=== PATIENT | male | born 1980 | race Caucasian/White ===

== ENCOUNTER → 2024-01-02 08:59 | Outpatient (REF) | payer BC, SELFPAY | LOC: HWRAD 08:59 | PROVIDERS: ATTENDING PHYSICIAN Physician Assistant Medical | DX: K55.9 Vascular disorder of intestine, unspecified (principal); R10.9 Unspecified abdominal pain; K92.1 Melena | CPT/HCPCS: 74177; Q9967 ==

== ENCOUNTER → 2024-01-19 06:19 | Day surgery (SDC) | payer BC, SELFPAY | LOC: GI 06:19 | PROVIDERS: ATTENDING PHYSICIAN Internal Medicine Gastroenterology | DX: K64.8 Other hemorrhoids (principal); K52.9 Noninfective gastroenteritis and colitis, unspecified; K57.30 Diverticulosis of large intestine without perforation or abscess without bleeding; D12.2 Benign neoplasm of ascending colon; D12.3 Benign neoplasm of transverse colon | CPT/HCPCS: 45385; 45380; 88305 ==